=== PATIENT | male | born 1990 | race African-American/Black ===

== ENCOUNTER → 2018-07-08 13:19 | Outpatient (CLI) | payer BC, SELFPAY ==
[2018-07-08 13:56] LABS: Influenza A and B by PCR Rapid Negative (Negative)
== END ==
PROVIDERS: Visit Provider Physician Assistant
DX: R68.89 Other general symptoms and signs (principal)
CPT/HCPCS: 87400

== ENCOUNTER 2018-07-08 14:18 | Emergency (ER) | payer BC, SELFPAY ==
--- NOTE | 2018-07-08 14:30 | DI.RAD.S_ITS ---
PROCEDURE: XR CHEST 2V INDICATIONS: fever/cough TECHNIQUE: 2 views of the chest were acquired. COMPARISON: None. FINDINGS: Surgical changes and devices: None. Lungs and pleura: Lungs are clear. No pleural effusions or pneumothorax. Mediastinum: Mediastinal contours are normal. Heart size is normal. Bones and chest wall: No suspicious bony abnormalities. Soft tissues appear unremarkable. IMPRESSION: No acute cardiopulmonary disease process. Dictated by: Ciarra Pepper MD, PhD on 07/08/2018 at 14:50 Approved by: Ciarra Pepper MD, PhD on 07/08/2018 at 14:51
[2018-07-08 14:34] VITALS: BP 131/98; PULSE 111; RESP 18; TEMP 36.9; O2SAT 98; BMI 23.8
--- NOTE | 2018-07-08 14:49 | ED.FEVER ---
HPI - Fever <Angeles Garza PA-C - Last Filed: 07/08/18 20:50> General Chief Complaint: Fever Stated Complaint: Pnenmonia Time Seen by Provider: 07/08/18 15:22 Source: patient and old records reviewed Mode of arrival: ambulatory Limitations: no limitations History of Present Illness HPI Narrative: This 27-year-old male who has a long history of asthma and allergy sent by walk-in clinic due to persistent symptoms after nebulizer treatment there. He states that on Saturday he developed hoarseness in his throat, with laryngitis and sore throat. He states that over the next couple of days he began coughing up a lot of green mucus and had chest congestion. Has also had some earache, more on the left, and sinus congestion along with chills and sweats or feeling warm. He states that he felt like he was doing okay yesterday, but that his albuterol was not helping very much (he uses out on a daily basis). This morning he woke up sweaty, and his chest felt very congested, bringing up more green mucus, tight. He feels tired and had more wheeze. He has not had any chest pain, does have a sensation of difficulty breaking up mucus. He does not have any new pain or swelling in his extremities. No GI symptoms or other new complaints on systems review. He states that he did visit a friend in the hospital on Saturday prior to symptoms. He states that he has needed emergency treatment for asthma in the past and has had steroids but has not been hospitalized. He also has allergies which have been worse this season. 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 He reports feeling somewhat improved after the nebulizer treatment here Related Data Previous Rx's Medication Instructions Recorded ProAir HFA 90 mcg/actuation 2 puff INHALATION Q4-6H PRN #8.5 06/02/18 aerosol inhaler gram NS albuterol sulfate 2 inhalation INHALATION Q3H PRN #1 07/08/18 each ipratropium-albuterol 3 ml INHALATION BID #90 ml 07/08/18 prednisone 40 mg PO DAILY #8 tab 07/08/18 Allergies Allergy/AdvReac Type Severity Reaction Status Date / Time No Known Drug Allergies Allergy Verified 07/08/18 14:34 Review of Systems <CASANDRA Gross Last Filed: 07/08/18 20:50> Review of Systems ROS Unobtainable: All systems reviewed & are unremarkable except as noted in HPI and below PFSH <Angeles Garza PA-C - Last Filed: 07/08/18 20:50> Medical History (Updated 07/08/18 @ 16:34 by Angeles Garza PA-C) Anxiety (Chronic) Asthma (Chronic) Seasonal allergies (Chronic) Male circumcision (Resolved) Social History Smoking Status: Current some day smoker Social History Smoking Status: Current some day smoker Exam <Angeles Garza PA-C - Last Filed: 07/08/18 20:50> Narrative Exam Narrative: GENERAL APPEARANCE: Patient sitting comfortably, in no distress. HEAD: No sinus TTP. EYES: PERRL, EOMI. EARS: Normal auditory canals, TMS intact with dull light reflex on the right, mildly erythematous with normal light reflex on the left ORAL CAVITY: Normal oropharynx. THROAT: Mild erythema, no exudate. Voice is hoarse NECK/THYROID: Neck supple, full range of motion, shoddy anterior cervical lymphadenopathy, no posterior nodes LUNGS: Clear to auscultation bilaterally, clear to percussion, no cough on exam. HEART: RRR without murmur, nl S1, S2, no S3 or S4. ABDOMEN: Soft, nontender, nondistended, +bowel sounds x4 quadrants EXTREMITIES: No edema DERMATOLOGIC: No exanthem Initial Vital Signs Initial Vital Signs: Vital Signs Temperature 98.5 F 07/08/18 14:34 Pulse Rate 111 H 07/08/18 14:34 Respiratory Rate 18 07/08/18 14:34 Blood Pressure 131/98 H 07/08/18 14:34 Pulse Oximetry 98 07/08/18 14:34 <Shandra Velasquez MD - Last Filed: 07/10/18 08:37> Initial Vital Signs Initial Vital Signs: Vital Signs Temperature 98.5 F 07/08/18 14:34 Pulse Rate 111 H 07/08/18 14:34 Respiratory Rate 18 07/08/18 14:34 Blood Pressure 131/98 H 07/08/18 14:34 Pulse Oximetry 98 07/08/18 14:34 Course <Angeles Garza PA-C - Last Filed: 07/08/18 20:50> Additional Information: Patient reports feeling markedly improved after steroids. He has fallen asleep, no wheeze on repeat exam. He will continue prednisone tomorrow, given prescriptions for his nebulizer as well as refill on albuterol inhaler. Advised follow-up with PCP in the next day or 2 and to return here if acutely worse again, and he is agreeable Orders Ordered: Discontinued Medications Acetaminophen (Tylenol) 975 mg PO NOW ONE Stop: 07/08/18 15:11 Last Admin: 07/08/18 15:15 Dose: 975 mg Albuterol (Ventolin) 2.5 mg INH NOW ONE Stop: 07/08/18 15:12 Last Admin: 07/08/18 15:14 Dose: 2.5 mg Ibuprofen (Advil) 800 mg PO NOW ONE Stop: 07/08/18 15:11 Last Admin: 07/08/18 15:15 Dose: 800 mg Methylprednisolone (Solu-Medrol 125 Mg Vial) 125 mg IV NOW ONE Stop: 07/08/18 15:37 Last Admin: 07/08/18 15:50 Dose: 125 mg Vital Signs - 8 hr 07/08/18 14:34 07/08/18 15:24 07/08/18 16:46 Temperature 98.5 F Pulse Rate 111 H 103 H 94 H Respiratory Rate 18 28 H Blood Pressure 131/98 H 141/89 H Pulse Oximetry 98 92 98 <Shandra Velasquez MD - Last Filed: 07/10/18 08:37> Orders Ordered: Discontinued Medications Acetaminophen (Tylenol) 975 mg PO NOW ONE Stop: 07/08/18 15:11 Last Admin: 07/08/18 15:15 Dose: 975 mg Albuterol (Ventolin) 2.5 mg INH NOW ONE Stop: 07/08/18 15:12 Last Admin: 07/08/18 15:14 Dose: 2.5 mg Ibuprofen (Advil) 800 mg PO NOW ONE Stop: 07/08/18 15:11 Last Admin: 07/08/18 15:15 Dose: 800 mg Methylprednisolone (Solu-Medrol 125 Mg Vial) 125 mg IV NOW ONE Stop: 07/08/18 15:37 Last Admin: 07/08/18 15:50 Dose: 125 mg Vital Signs - 8 hr 07/08/18 14:34 07/08/18 15:24 07/08/18 16:46 Temperature 98.5 F Pulse Rate 111 H 103 H 94 H Respiratory Rate 18 28 H Blood Pressure 131/98 H 141/89 H Pulse Oximetry 98 92 98 MDM - Fever <Angeles Garza PA-C - Last Filed: 07/08/18 20:50> Lab Data Result diagrams: 07/08/18 15:25 07/08/18 15:25 Lab Results 07/08/18 07/08/18 07/08/18 Range/Units 15:25 15:25 15:25 WBC 12.8 H (4.5-11.0) X10^3/uL RBC 5.27 (4.5-5.9) X10^6/uL Hgb 15.7 (13.5-17.5) g/dL Hct 45.2 (41-53) % MCV 85.8 (80-100) fL MCH 29.7 (26-34) PG MCHC 34.6 (30-36) % RDW 13.5 (11.6-14.8) % Plt Count 223 (150-400) X10^3/uL Neut % (Auto) 84.3 H (50-75) % Lymph % (Auto) 7.9 L (25-40) % [place] % (Auto) 6.2 (3-14) % Eos % (Auto) 1.3 L (2-4) % Baso % (Auto) 0.3 (0-2) % Neut # (Auto) 12674 H (1563-5618) /uL Lymph # (Auto) 1000 L (3378-7853) /uL [place] # (Auto) 800 (0-900) /uL Eos # (Auto) 200 (0-450) /uL Baso # (Auto) 0 (0-100) /uL Sodium 136 L (137-145) mmol/L Potassium TNP Chloride 99 (98-107) mmol/L Carbon Dioxide 29 (22-32) mmol/L BUN 9 (9-20) mg/dL Creatinine 0.90 (0.66-1.25) mg/dL Estimated GFR > 60.0 (>60) mL/min BUN/Creatinine Ratio 10.0 (6-22) Glucose 107 H (70-100) mg/dL Calcium 9.4 (8.4-10.2) mg/dL Procalcitonin 0.06 (<0.5) ng/mL Imaging Data Chest x-ray: Radiologist's impression: [address] [address] XRay Report Signed Patient: Lee Huff DMR#: [id number] : 1990Acct:[id number] Age/Sex: te of Service: 07/08/18 Loc: ED Accession Number: [id number] Procedure: XR chest 2V Ordering Provider: Shandra Velasquez MD PROCEDURE: XR CHEST 2V INDICATIONS: fever/cough TECHNIQUE: 2 views of the chest were acquired. COMPARISON: None. FINDINGS: Surgical changes and devices: None. Lungs and pleura: Lungs are clear. No pleural effusions or pneumothorax. Mediastinum: Mediastinal contours are normal. Heart size is normal. Bones and chest wall: No suspicious bony abnormalities. Soft tissues appear unremarkable. IMPRESSION: No acute cardiopulmonary disease process. Dictated by: Ciarra Pepper MD, PhD on 07/08/2018 at 14:50 Approved by: Ciarra Pepper MD, PhD on 07/08/2018 at 14:51 <Shandra Velasquez MD - Last Filed: 07/10/18 08:37> Lab Data Lab Results 07/08/18 07/08/18 07/08/18 Range/Units 15:25 15:25 15:25 WBC 12.8 H (4.5-11.0) X10^3/uL RBC 5.27 (4.5-5.9) X10^6/uL Hgb 15.7 (13.5-17.5) g/dL Hct 45.2 (41-53) % MCV 85.8 (80-100) fL MCH 29.7 (26-34) PG MCHC 34.6 (30-36) % RDW 13.5 (11.6-14.8) % Plt Count 223 (150-400) X10^3/uL Neut % (Auto) 84.3 H (50-75) % Lymph % (Auto) 7.9 L (25-40) % [place] % (Auto) 6.2 (3-14) % Eos % (Auto) 1.3 L (2-4) % Baso % (Auto) 0.3 (0-2) % Neut # (Auto) 56434 H (1135-2037) /uL Lymph # (Auto) 1000 L (1283-3547) /uL [place] # (Auto) 800 (0-900) /uL Eos # (Auto) 200 (0-450) /uL Baso # (Auto) 0 (0-100) /uL Sodium 136 L (137-145) mmol/L Potassium TNP Chloride 99 (98-107) mmol/L Carbon Dioxide 29 (22-32) mmol/L BUN 9 (9-20) mg/dL Creatinine 0.90 (0.66-1.25) mg/dL Estimated GFR > 60.0 (>60) mL/min BUN/Creatinine Ratio 10.0 (6-22) Glucose 107 H (70-100) mg/dL Calcium 9.4 (8.4-10.2) mg/dL Procalcitonin 0.06 (<0.5) ng/mL Discharge Plan Departure Patient Disposition: Home Clinical Impression: Bronchitis Asthma exacerbation Qualifiers: Asthma severity: moderate Asthma persistence: persistent Qualified Code(s): J45.41 - Moderate persistent asthma with (acute) exacerbation Discharge Date/Time: 07/08/18 16:46 Interventions: ED Discharge Assessment Last Done: 07/08/18 16:46 Instructions: DI for Asthma -- Adult, DI for Acute Bronchitis Activity Restrictions/Additional Instructions: I believe that your symptoms are due to asthma exacerbation from a viral infection. Please continue your allergy medicines, as well as your albuterol inhaler as often as needed (I have prescribed a spacer for you to use with this). I have also prescribed long-acting nebulizer treatments to use twice daily in addition to the inhaler. We have given you a steroid here in your IV which has helped you, so please continue prednisone tomorrow 40 mg once daily. Add Mucinex to help with chest congestion. As we talked about, you should return here if you have acutely worsening symptoms. Otherwise, please remain off of work tomorrow and call your PCP 1st thing in the morning to arrange follow-up. It is likely that you need to be on additional asthma and allergy medicines regularly since you are needing to use her albuterol every day. Prescriptions: New ipratropium-albuterol 0.5 mg-3 mg(2.5 mg base)/3 mL solution for nebulization 3 ml INHALATION BID Qty: 90 RF: 0 prednisone 20 mg tablet 40 mg PO DAILY Qty: 8 RF: 0 albuterol sulfate 90 mcg/actuation aerosol powdr breath activated 2 inhalation INHALATION Q3H PRN (Reason: shortness of breath or wheezing) Qty: 1 RF: 0 No Action ProAir HFA 90 mcg/actuation HFA aerosol inhaler 2 puff INHALATION Q4-6H PRN (Reason: shortness of breath) Qty: 8.5 RF: 2 Referrals: Connie Mike [Provider Group] Stand Alone Forms: Work Release Note
[2018-07-08] MEDS: ALBUTEROL 2.5 MG/3 ML NEB (ADULT) INH (15:14)
[2018-07-08] MEDS: ACETAMINOPHEN 325 MG TABLET 975 MG PO (15:15)
[2018-07-08] MEDS: IBUPROFEN 400 MG TABLET 800 MG PO (15:15)
[2018-07-08 15:24] VITALS: PULSE 103; O2SAT 92
[2018-07-08 15:32] LABS: Add Manual Diff / Slide Review NO; Basophils Absolute Auto 0 /uL (0-100); Basophils Percent Auto 0.3 % (0-2); Eosinophils Absolute Auto 200 /uL (0-450); Eosinophils Percent Auto 1.3 % (2-4); Hematocrit 45.2 % (41-53); Hemoglobin 15.7 g/dL (13.5-17.5); Lymphocytes Absolute Auto 1000 /uL (1100-4500); Lymphocytes Percent Auto 7.9 % (25-40); Mean Corpuscular HGB Conc 34.6 % (30-36); Mean Corpuscular Hemoglobin 29.7 PG (26-34); Mean Corpuscular Volume 85.8 fL (80-100); Monocytes Absolute Auto 800 /uL (0-900); Monocytes Percent Auto 6.2 % (3-14); Neutrophils Absolute Auto 10800 /uL (1500-7000); Neutrophils Percent Auto 84.3 % (50-75); Platelet Count 223 X10^3/uL (150-400); Red Blood Cell Count 5.27 X10^6/uL (4.5-5.9); Red Cell Distribution Width 13.5 % (11.6-14.8); White Blood Cell Count 12.8 X10^3/uL (4.5-11.0)
[2018-07-08 15:47] LABS: Blood Urea Nitrogen 9 mg/dL (9-20); Calcium 9.4 mg/dL (8.4-10.2); Carbon Dioxide 29 mmol/L (22-32); Chloride 99 mmol/L (98-107); Estimated Glomerular Filt Rate > 60.0 mL/min (>60); Glucose 107 mg/dL (70-100); Sodium 136 mmol/L (137-145)
[2018-07-08 15:49] LABS: HEMOLYSIS 103 (0-50)
[2018-07-08] MEDS: methylPREDNISolone 125 MG/2 ML VIAL IV (15:50)
[2018-07-08 16:07] LABS: Procalcitonin 0.06 ng/mL (<0.5)
[2018-07-08 16:46] VITALS: BP 141/89; PULSE 94; RESP 28; O2SAT 98
== END 2018-07-08 16:46 | disposition home or self-care (01) ==
PROVIDERS: Emergency Medicine; Emergency Provider Internal Medicine
DX: J45.41 Moderate persistent asthma with (acute) exacerbation (principal); J40 Bronchitis, not specified as acute or chronic
CPT/HCPCS: 36591; 71046; 80048; 84145; 85025; 87400; 94150; 94640; 96374; 99282; 99284; J2930; J7613